=== PATIENT | male | born 1965 | race Caucasian/White ===

== ENCOUNTER 2020-09-19 09:23 | Day surgery (SDC) | payer BC ==
[2020-09-19] MEDS ORDERED: Midazolam HCl 2 mg/2 ml Vial ONE (09:59)
[2020-09-19] MEDS ORDERED: Fentanyl 100 MCG/2 ML VIAL ONE (09:59)
[2020-09-19] MEDS ORDERED: PROPOFOL 200 MG/20 ML VIAL ONE (10:12)
[2020-09-19] MEDS ORDERED: Dexamethasone 20 MG/5 ML VIAL ONE (10:12)
[2020-09-19] MEDS ORDERED: Succinylcholine 200 MG/10 ml SYRINGE FS ONE (10:12)
[2020-09-19] MEDS ORDERED: Ondansetron PF 4 MG/2 ML Vial ONE (10:12)
[2020-09-19] MEDS ORDERED: Iothalamate Meglumine 60% 50 ML VIAL FS ONE (10:32)
== END 2020-09-19 12:05 | disposition home or self-care (01) ==
LOC: SDC 09:23
PROVIDERS: ATTEND Urology
PROC: 0T778DZ Dilation of Left Ureter with Intraluminal Device, Via Natural or Artificial Opening Endoscopic (ICD-10-PCS; principal; 2020-09-19)
DX: N20.1 Calculus of ureter (principal); E78.00 Pure hypercholesterolemia, unspecified; E11.9 Type 2 diabetes mellitus without complications; Z79.899 Other long term (current) drug therapy; Z88.0 Allergy status to penicillin
CPT/HCPCS: 74420; C2617; J0690; J1100; J2250; J2405; J2704; J3010; Q9961

== ENCOUNTER 2020-09-21 08:01 | Day surgery (SDC) | payer BC ==
[2020-09-20 14:52] VITALS: BMI 43.7
[2020-09-21] MEDS ORDERED: Levofloxacin 500 mg/D5W 100 ml Premix Bag ONE (09:30)
[2020-09-21] MEDS ORDERED: Iothalamate Meglumine 60% 50 ML VIAL FS ONE (09:44)
[2020-09-21] MEDS ORDERED: Fentanyl 100 MCG/2 ML VIAL ONE (09:49)
[2020-09-21] MEDS ORDERED: Lidocaine 1% PF 5 ML VIAL ONE (10:08)
[2020-09-21] MEDS ORDERED: Rocuronium Bromide 10 MG/ML (10ML VIAL) ONE (10:08)
[2020-09-21] MEDS ORDERED: Glycopyrrolate 0.2 MG/ML 5 ML SYRINGE ONE (10:08)
[2020-09-21] MEDS ORDERED: PROPOFOL 200 MG/20 ML VIAL ONE (10:08)
[2020-09-21] MEDS ORDERED: Ondansetron PF 4 MG/2 ML Vial ONE (10:08)
[2020-09-21] MEDS ORDERED: Oxybutynin 5 MG TAB ONE (11:11)
[2020-09-21] MEDS ORDERED: Ketorolac Tromethamine 30 MG/ML VIAL ONE (11:11)
== END 2020-09-21 13:40 | disposition home or self-care (01) ==
LOC: SDC 08:01
PROVIDERS: ATTEND Urology
PROC: 0T778DZ Dilation of Left Ureter with Intraluminal Device, Via Natural or Artificial Opening Endoscopic (ICD-10-PCS; principal; 2020-09-21)
PROC: 0TC78ZZ Extirpation of Matter from Left Ureter, Via Natural or Artificial Opening Endoscopic (ICD-10-PCS; principal; 2020-09-21)
DX: N20.1 Calculus of ureter (principal); E78.5 Hyperlipidemia, unspecified; Z96.0 Presence of urogenital implants; Z88.0 Allergy status to penicillin; Z79.899 Other long term (current) drug therapy; Z79.51 Long term (current) use of inhaled steroids
CPT/HCPCS: 74420; 82365; 88300; C2617; J1885; J1956; J2405; J2704; J3010; Q9961